=== PATIENT | female | born 1965 | race Caucasian/White ===

== ENCOUNTER 2016-07-09 20:25 | Inpatient (IN) | payer BC ==
[~2016-07-09] VITALS: Ht 167.6 cm; Wt 106.1 kg
[2016-07-09 21:01] LABS: BASOPHIL COUNT 0.1 K/uL (0-0.1); EOSINOPHIL (%) 2.1 % (0-5); EOSINOPHIL COUNT 0.2 K/uL (0-0.3); HEMATOCRIT 40.3 % (36.0-46.0); IMMATURE GRANULOCYTE (%) 0.3 % (0.0-0.7); INSTRUMENT ABS NEUTROPHIL CT 5.8 K/uL; LYMPHOCYTE COUNT 3.3 K/uL (1.0-2.8); MCH 28.3 PG (29.0-34.0); MCHC 32.8 G/DL (30.0-36.0); MCV 86.3 FL (83-99); MEAN PLAT.VOLUME 10.7 uM^3 (9.5-12.4); MONOCYTE (%) 7.7 % (3-12); MONOCYTE COUNT 0.8 K/uL (0-0.8); NEUTROPHIL (%) 56.9 % (45-76); NEUTROPHIL COUNT 5.8 K/uL (1.8-6.4); PLATELET COUNT 320 K/uL (156-360); RBC DIS.WIDTH-CV 13.7 % (11.8-14.6); RED BLOOD COUNT 4.67 M/uL (3.80-5.20); WHITE BLOOD COUNT 10.2 K/uL (4.1-10.2)
[2016-07-09 21:11] LABS: CHLORIDE 107 mEq/L (99-109); INTER. NORMALIZED RATIO 0.9; PROTHROMBIN TIME 9.6 (9.2-11.2); PTT 28.4 (25-32); SODIUM 143 mEq/L (136-147)
[2016-07-09 21:13] LABS: GLUCOSE 92 mg/dL (70-99)
[2016-07-09 21:15] LABS: ANION GAP 13 MEQ/L (2-14)
[2016-07-09 21:17] LABS: GFR ESTIMATE (CALCULATED) > 59 mL/min/
[2016-07-09 21:18] LABS: UREA NITROGEN (BUN) 23 mg/dL (9-23)
[2016-07-10] VITALS (17 sets, daily range): BP systolic 118–162; BP diastolic 52–91
[2016-07-10 03:31] LABS: METH RESISTANT S AUREUS PCR NEGATIVE (NEGATIVE)
[2016-07-10 04:03] LABS: PROBE CHECK PASS; SPECIMEN PROCESSING CONTROL PASS
[2016-07-11] VITALS (10 sets, daily range): BP systolic 100–150; BP diastolic 46–85
[2016-07-11 05:45] LABS: ANION GAP 10 MEQ/L (2-14); CHLORIDE 110 MEQ/L (99-109); GFR ESTIMATE (CALCULATED) > 59 mL/min/; GLUCOSE 113 mg/dL (70-99); POTASSIUM 4.2 MEQ/L (3.7-5.4); SAMPLE HEMOLYSIS CHECK 0; SAMPLE ICTERIC CHECK 0; SAMPLE LIPEMIA CHECK 0; SODIUM 143 MEQ/L (136-147); UREA NITROGEN (BUN) 12 mg/dL (9-23)
[2016-07-11] MEDS ORDERED: NORCO 5/3251 TABLET PO (08:53)
[2016-07-11] MEDS ORDERED: LYRICA50 MG PO (08:55)
[2016-07-11] MEDS ORDERED: MOBIC7.5 MG PO (08:55)
[2016-07-11] MEDS ORDERED: MEDROL DOSEPAK4 MG PO (09:05)
[2016-07-11] MEDS ORDERED: LYRICA75 MG PO (09:18)
== END 2016-07-11 10:45 | disposition home or self-care (01) | DRG 208 ==
LOC: EME 20:25 → 4WEST 07-10 01:19 → EDOF 07-10 01:19 → 4WEST 07-10 01:59
PROVIDERS: Emergency Medicine; Surgery
PROC: 0HQEXZZ Repair Left Lower Arm Skin, External Approach (ICD-10-PCS; principal; 2016-07-10)
PROC: 0HQFXZZ Repair Right Hand Skin, External Approach (ICD-10-PCS; principal; 2016-07-10)
PROC: 5A1935Z Respiratory Ventilation, Less than 24 Consecutive Hours (ICD-10-PCS; principal; 2016-07-10)
PROC: 0BH17EZ Insertion of Endotracheal Airway into Trachea, Via Natural or Artificial Opening (ICD-10-PCS; principal; 2016-07-10)
DX: J96.00 Acute respiratory failure, unspecified whether with hypoxia or hypercapnia (principal); T88.6XXA Anaphylactic reaction due to adverse effect of correct drug or medicament properly administered, initial encounter; T50.8X5A Adverse effect of diagnostic agents, initial encounter; S61.226A Laceration with foreign body of right little finger without damage to nail, initial encounter; S61.522A Laceration with foreign body of left wrist, initial encounter; W08.XXXA Fall from other furniture, initial encounter; G89.29 Other chronic pain; M25.551 Pain in right hip; M19.90 Unspecified osteoarthritis, unspecified site; Y93.9 Activity, unspecified; Y92.009 Unspecified place in unspecified non-institutional (private) residence as the place of occurrence of the external cause; Y99.9 Unspecified external cause status
CPT/HCPCS: 31500; 71010; 73090; 73130; 73206; 80048; 85025; 85610; 85730; 86900; 86901; 87070; 87205; 87641; 93005; 94002; 94799; 99281; 99285; J1100; J1200; J1644; J2270; J2704; J7030; S0028